=== PATIENT | female | born 1990 | race Caucasian/White ===

== ENCOUNTER → 2022-08-07 15:30 | Outpatient (CLI) | payer OTHER, SELFPAY ==
--- NOTE | ~2022-08-07 | US_ITS ---
EXAMINATION: US OB /maternal detail DATE: 08/07/2022 16:09 INDICATION: Second trimester anatomic survey TECHNIQUE: Real-time ultrasound of the pelvis was performed. COMPARISON: None. FINDINGS: There is a single living fetus in transverse lie. The placenta is posterior and 5 cm from the interna l cervical os. The cervical length is 3.7 cm. heart rate is 149 beats per minute (bpm). cardiac activity and movement are noted. The amniotic fluid index is subjectively normal. The following anatomy was identified as normal: 4 chamber heart 3 vessel cord cord insertion kidneys urinary bladder stomach spine diaphragm ventricles cisterna magna cerebellum The following biometric data were obtained: Biparietal diameter (BPD): 4.8 cm; head circumference (HC): 17.3 cm; abdominal circumference (AC): 14 .7 cm; femur length (FL): 3.2 cm. These measurements are concordant. Estimated weight is 328 g +/- 49 g, which correlates with the 65th percentile when 12/27/2022 is used as estimated date of delivery. As single measurements, these parameters are each equal to the following estimated gestational ages w ith ranges of +/- 2 standard deviations: BPD: 20 weeks 3 days +/- 1 weeks 5 days. HC: 19 weeks 6 days +/- 1 weeks 3 days. AC: 20 weeks 0 days +/- 2 weeks 0 days. FL: 20 weeks 1 days +/- 1 weeks 6 days. estimated gestational age based solely on measurements from this exam is 20 weeks 1 days +/- 1 weeks 3 days. IMPRESSION: 1. Single living fetus in transverse lie. 2. Estimated weight is 328 g +/- 49 g, which correlates with the 65th percentile when 12/27/2022 is used as estimated date of delivery. Reviewed, dictated and finalized at location A. IMPRESSION: 1. Single living fetus in transverse lie. 2. Estimated weight is 328 g +/- 49 g, which correlates with the 65th per centile when 12/27/2022 is used as estimated date of delivery.
== END ==
PROVIDERS: PCP Obstetrics & Gynecology Gynecologic Oncology; Visit Provider Obstetrics & Gynecology Gynecologic Oncology
DX: Z36.9 Encounter for antenatal screening, unspecified (principal)
CPT/HCPCS: 76805

== ENCOUNTER → 2022-09-04 13:50 | Outpatient (CLI) | payer OTHER, SELFPAY ==
--- NOTE | ~2022-09-04 | US_ITS ---
EXAMINATION: US OB limited DATE: 09/04/2022 14:20 INDICATION: Incomplete anatomic survey during second trimester TECHNIQUE: Real-time ultrasound of the pelvis was performed. The interpreting radiologist was not pre sent for the study. COMPARISON: None. FINDINGS: There is a single living fetus in transverse lie. The placenta is posterior and 4.7 cm from the internal cervical os. The cervical length is 3.5 cm. cardiac activity and movement a re noted. heart rate is 157 beats per minute (bpm). The amniotic fluid index is subjectively no rmal. The ventricular outflow tracts of the heart are visualized and appear normal. IMPRESSION: 1. Single living fetus in transverse lie. 2. Normal-appearing ventricular outflow tracts of the heart. Reviewed, dictated and finalized at location A. [employer]
== END ==
PROVIDERS: PCP Obstetrics & Gynecology Gynecologic Oncology; Visit Provider Obstetrics & Gynecology Gynecologic Oncology
DX: Z36.9 Encounter for antenatal screening, unspecified (principal); Z3A.00 Weeks of gestation of pregnancy not specified
CPT/HCPCS: 76815